=== PATIENT | male | born 1980 | race Caucasian/White ===

== ENCOUNTER 2021-10-13 20:26 | Emergency (ER) | payer SELFPAY ==
[2021-10-13] MEDS ORDERED: Acetaminophen 650 MG Suppository ONE (20:40)
[2021-10-13] MEDS ORDERED: Acetaminophen 500 MG TAB ONE (20:43)
[2021-10-13 20:49] LABS: Hemoglobin 12.6 g/dL (13.5-17.5); Mean Corpuscular HGB CONC 33.6 g/dL (32.0-36.0); Mean Corpuscular Hemoglobin 30.1 pg (27.0-33.0); Mean Corpuscular Volume 89.7 fl (81.2-95.1); Mean Platelet Volume 9.5 fl (7.4-10.4); Platelet Count 253 10x3/uL (150-450); RBC Distribution Width 13.1 % (11.5-14.5); Red Blood Cell (RBC) Count 4.18 10x6/uL (4.32-5.72)
[2021-10-13 20:57] LABS: ALT (SGPT) 12 U/L (8-55); AST (SGOT) 17 U/L (5-34); Albumin 4.1 g/dL (3.5-5.0); Alkaline Phosphatase 75 U/L (40-110); Anion Gap 12 mmol/L (10-20); BUN (Urea Nitrogen) 22 mg/dL (8.9-20.6); Bilirubin, Total 0.3 mg/dL (0.2-1.2); Calc. Creatinine Clearance 0 mL/min (70-130); Calcium 8.7 mg/dL (7.8-10.44); Carbon Dioxide 27 mmol/L (22-29); Chloride 100 mmol/L (98-107); Globulin 2.9 g/dL (2.4-3.5); Glucose 107 mg/dL (70-105); Potassium 3.4 mmol/L (3.5-5.1); Sodium 136 mmol/L (136-145)
[2021-10-13 21:07] LABS: MDiff Complete? YES
[2021-10-13 21:08] LABS: Platelet Morphology Comment Appears Adequate; RBC Morphology Normal
[2021-10-13 21:15] LABS: Lymphocytes 21 % (21-51); Monocytes 22 % (0-10); Neutrophil 57 % (42-75)
[2021-10-13 21:31] LABS: SARS-CoV-2 NAA Rapid Test DETECTED (NotDetected)
== END 2021-10-13 23:10 | disposition home or self-care (01) ==
LOC: CSHERS 20:26
DX: U07.1 COVID-19 (principal); R56.9 Unspecified convulsions
CPT/HCPCS: 36415; 71045; 80053; 83605; 85025; 87040; U0002